=== PATIENT | female | born 2005 | race African-American/Black ===

== ENCOUNTER 2024-12-19 11:17 | Emergency (ER) | payer OTHER ==
[~2024-12-19] VITALS: Ht 149.9 cm; Wt 50.9 kg
[2024-12-19 12:40] LABS: KETONE, URINE AUTO RFX TRACE mg/dL (NEGATIVE); LEUKOCYTE ESTERASE UR AUTO RFX 2+ (NEGATIVE); MUCUS, URINE RFX SMALL (NEGATIVE); NITRITE, URINE AUTO RFX NEGATIVE (NEGATIVE); RBC, URINE AUTO RFX 44 /HPF (0-3); SQUAM EPITHELIAL CELL UR AURFX 143 /HPF (0-6); WBC, URINE AUTO RFX TNTC /HPF (0-3)
[2024-12-19 13:43] LABS: Trichomonas vaginalis (AMP) NOT DETECTED (NEGATIVE)
[2024-12-19 13:43] LABS: HIV 1&2 SCREEN NEGATIVE (NEGATIVE)
[2024-12-19 13:48] LABS: HCG, SERUM QUANTITATIVE < 2.6 MIU/ML (<4.2)
[2024-12-19] MEDS ORDERED: SULF1TAB23 PO (13:51)
[2024-12-19] MEDS ORDERED: METR0.7526 TOP (13:51)
[2024-12-19] MEDS: BACTRIM 160MG/800MG DS TAB PO ONE (18:18)
[2024-12-19] MEDS: KETOROLAC 60 MG/2 ML VIAL IM ONE (18:19)
[2024-12-19 18:56] LABS: GC DNA AMPLIFICATION NEGATIVE (NEGATIVE)
[2024-12-19] MEDS ORDERED: DOXY100T PO (18:59)
[2024-12-19] MEDS ORDERED: DOXYCYCLINE HYCLATE 100 MG TABLET PO ONE (19:00)
[2024-12-19] MEDS ORDERED: LIDOCAINE 1% SDV 5 ML VIAL DILUENT ONE (19:00)
[2024-12-19 19:08] VITALS: BP 101/65; TEMP 97.8; O2SAT 100
== END 2024-12-19 19:24 | disposition home or self-care (01) ==
LOC: M ED 11:17
DX: N39.0 Urinary tract infection, site not specified (principal); N76.0 Acute vaginitis; F10.90 Alcohol use, unspecified, uncomplicated; Z91.048 Other nonmedicinal substance allergy status; Z79.899 Other long term (current) drug therapy
CPT/HCPCS: 81001; 84702; 87088; 87186; 87210; 87389; 87661; 87810; 87850; 96372; 99284; J1885